=== PATIENT | male | born 1950 | race Caucasian/White ===

== ENCOUNTER 2024-07-21 13:47 | Emergency (ER) | payer MEDICARE, SELFPAY ==
[2024-07-21] VITALS (39 sets, daily range): BP systolic 115–169; BP diastolic 61–94; PULSE 59–79; RESP 16; TEMP 36.9; O2SAT 89–100; BMI 34.9
--- NOTE | 2024-07-21 14:14 | CRLHL7_ITS ---
For Patients: As a result of the Century Cures Act, medical imaging exams and procedure reports are released immediately into your electronic medical record. You may view this report before your referring provider. If you have questions, please contact your health care provider. Indication: Trauma, fall Technique: Volumetric multidetector CT images of the chest were obtained after the administration of IV contrast. 75 cc Isovue 370 low osmolar intravenous contrast Comparison: None available. Findings: The thoracic inlet and thyroid gland are unremarkable. The thoracic aorta is nonaneurysmal. There is no central filling defect to suggest pulmonary embolism. There is no mediastinal, hilar or axillary adenopathy. There is mild central bronchial thickening. There is minimal basilar atelectasis with mild likely chronic interstitial changes. No dense consolidation, effusion or pneumothorax. There is no evidence of pulmonary mass or suspicious pulmonary nodule. The partially visualized upper abdomen demonstrates moderate hepatomegaly and hepatic steatosis. There is a small fat containing hiatal hernia. There is demonstration of moderate sclerotic changes of the T7 vertebral body with extensive flowing anterior osteophytosis there is minimal extension of sclerotic changes to lateral syndesmophytes and the anterior osteophytes. There is demonstration of transverse lucency through the posterior body of the T11 level with mild paraspinous hematoma. Impression: 1. Mild basilar atelectasis. No other acute cardiopulmonary abnormality. 2. Demonstration of likely subacute to chronic fracture of the T7 vertebral body with a new acute fracture of the posterior T11 vertebral body with mild paraspinous hematoma. There is minimal extension of fracture through anterior osteophyte. Please note that all CT scans at this facility use dose modulation, iterative reconstruction, and/or weight-based dosing when appropriate to reduce radiation dose to as low as reasonably achievable. Dictated by Guille Portillo MD @ 07/21/2024 3:53:30 PM (Electronically Signed)
--- NOTE | 2024-07-21 14:14 | CRLHL7_ITS ---
For Patients: As a result of the Century Cures Act, medical imaging exams and procedure reports are released immediately into your electronic medical record. You may view this report before your referring provider. If you have questions, please contact your health care provider. Indication: Trauma, fall Technique: Volumetric multidetector CT images of the thoracic spine were obtained without the administration of IV contrast. Comparison: None available. Findings: There are sclerotic changes of the T7 vertebral body commensurate with likely healing of a chronic fracture. The remaining vertebral body heights are otherwise grossly preserved. There is trace traumatic anterolisthesis of T11 on T12. Otherwise there is mild straightening of the normal thoracic kyphosis. There is extensive diffuse flowing anterior osteophytosis and syndesmophyte ptosis commensurate with DISH. There is [id number] degenerative disc height loss and marginal osteophyte formation. There is no significant spinal canal stenosis or neural foraminal narrowing. Demonstration of fracture of the posterior T11 vertebral body with extension into the posterior elements including the base of the pedicles and spinous process. There is additional fracture disruption of bridging osteophyte at the T11-12 level with minimal extension through the superior T12 endplate. There is minimal paraspinous hematoma at the T11 and T12 levels. Impression: 1. Fracture of the posterior body of the T11 level with extension into the pedicles and spinous process commensurate with a 3 column, unstable injury with likely mild posttraumatic anterolisthesis of T11 on T12. 2. Additional fracture extending through a bridging osteophyte at the T11-12 level is appreciated with extension into the superior T12 endplate. No evidence of additional extended fractures into the posterior elements. 3. Demonstration of a healing subacute or chronic fracture of the T7 level. Findings were discussed with Cecile ram at 4:02 p.m. July 21, 2024 Please note that all CT scans at this facility use dose modulation, iterative reconstruction, and/or weight-based dosing when appropriate to reduce radiation dose to as low as reasonably achievable. Dictated by Guille Portillo MD @ 07/21/2024 4:07:56 PM (Electronically Signed)
--- NOTE | 2024-07-21 14:14 | CRLHL7_ITS ---
For Patients: As a result of the Century Cures Act, medical imaging exams and procedure reports are released immediately into your electronic medical record. You may view this report before your referring provider. If you have questions, please contact your health care provider. Indication: Trauma, fall Technique: Volumetric multidetector CT images of the lumbar spine were obtained without the administration of IV contrast. Comparison: None available. Findings: The lumbar vertebral body heights are grossly maintained with minimal endplate Schmorl`s defects. There is mild anterolisthesis of L4 on L5. No other significant alignment abnormalities are appreciated. There is mild disc height loss and marginal osteophyte formation worst at the L4-L5 and L5-S1 level. There is moderate to severe facet arthrosis. Degenerative changes of the sacroiliac joints are appreciated. Minimally displaced fracture of the left L1, L2 and L3 transverse processes. The paraspinous soft tissues are grossly within normal limits. Impression: Minimally displaced fractures of the left L1 through L3 transverse processes. Otherwise moderate degenerative changes of the lumbar spine without additional acute traumatic abnormality. Please note that all CT scans at this facility use dose modulation, iterative reconstruction, and/or weight-based dosing when appropriate to reduce radiation dose to as low as reasonably achievable. Dictated by Guille Portillo MD @ 07/21/2024 3:56:35 PM (Electronically Signed)
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
[2024-07-21 14:38] LABS: Creatinine, Point-of-Care* 1.4 mg/dl (0.6-1.3)
--- OUTSIDE RECORDS SUMMARY | 2024-07-21 14:38 | XMS_ITS | Clinical Summary ---
Author Organization [employer] [facility] Address [place], [place] [address] Care Team Providers Care Copyright Expert Name Role Phone Merrill Ewing MD Primary Care Provider Allergies Active Allergy Reactions Criticality Noted Date Comments Chlorthalidone Other - Describe In Comment Field 03/16/2023 Low sodium at [facility] 2022 Lisinopril Cough 03/31/2007 Medications Medication Sig Dispensed Refills Start Date End Date Status aspirin (ECOTRIN) 81 mg enteric coated tablet Take 1 tablet by mouth once daily with a meal. 0 11/02/2014 Active triamcinolone (ARISTOCORT; KENALOG) 0.1 % cream 03/18/2023 Active triamterene-hydrochlo rothiazide, 37.5-25 mg, (DYAZIDE) 37.5-25 mg capsuleIndications:Be nign essential HTN Take 1 Capsule by mouth every morning. 90 Capsule 3 01/28/2024 Active clotrimazole-betameth asone cream (LOTRISONE) 1-0.05 % creamIndications:Rash Apply topically to affected area(s) two times daily. 15 g 01/28/2024 Active atorvastatin (LIPITOR) 40 mg tabletIndications:Hyp erlipidemia, unspecified hyperlipidemia type Take 1 Tablet (40 mg) by mouth at bedtime. 90 Tablet 3 02/25/2024 Active losartan (COZAAR) 100 mg tabletIndications:Ess ential hypertension Take 1 Tablet (100 mg) by mouth once daily. 90 Tablet 3 02/25/2024 Active metoprolol tartrate (LOPRESSOR) 50 mg tabletIndications:Ess ential hypertension Take 1 Tablet (50 mg) by mouth two times daily. 180 Tablet 3 02/25/2024 Active Active Problems Problem Noted Date Diagnosed Date Bilateral lower extremity edema 01/28/2024 Prediabetes 01/06/2022 Umbilical hernia without obstruction and without gangrene 01/06/2022 Obesity, Class II, BMI 35-39.9 12/10/2020 Unspecified essential hypertension 03/31/2007 Other and unspecified hyperlipidemia 03/31/2007 Resolved Problems Problem Noted Date Diagnosed Date Resolved Date Left carotid bruit 01/06/2022 Routine adult health maintenance 11/01/2013 12/10/2020 Overview (11/01/2013): Colonoscopy 10/2013 diverticulosis repeat in 10 years Encounters Date Type Department Care Team Description 04/27/2024 Telephone [facility] [address] [place] [address] Merrill Ewing MD Foot Problem from Last 3 Months Immunizations Name Administration Dates Next Due COVID-19 VACCINE SPIKEVAX (M ODERNA 50MCG/0.5ML) 12YO+ PFS 01/28/2024 COVID-19 vaccine (Pfizer-Bio NTech 30mcg/0.3mL) 12YO+ BIVALENT PF, MDV 01/08/2023 COVID-19 vaccine (Pfizer-Bio NTech 30mcg/0.3mL) 12YO+ DOUG-SUCROSE PF, MDV 01/06/2022 Pneumococcal Conj 20-valent (Prevnar 20) 023 Pneumococcal Poly,23-Valent (Pneumovax) 11/15/19 16 Pneumococcal conj 13-Valent (Prevnar 13) 015 Td (Age >=7 Years) 10/19/2002 Tdap 09/26/2013 Family History Medical History Relation Name Comments Other Father dementia/jason son's disease Diabetes Mother Heart Disease Mother Relation Name Status Comments Father Mother Social History Tobacco Use Types Packs/Day Years Used Date Smoking Tobacco: Never Smokeless Tobacco: Never Tobacco Cessation:Counseling Given: No Alcohol Use Standard Drinks/Week Comments Yes 21 (1 standard drink = 0.6 oz pu re alcohol) 3 to 4 beers a day PHQ-2 Answer Date Recorded PHQ-2 TOTAL SCORE 0 01/28/2024 Social Connections Answer Date Recorded Frequency of Communication with Friends and Fami ly Not on file 04/18/2024 Financial Resource Strain Answer Date R ecorded Difficulty of Paying Living Expenses 3 04/15/2023 Difficulty of Paying Living Expenses Not on file 04/15/2023 Food Insecurity Answer Date Recorded Worried About Running Out of Food in the Last Ye ar 1 04/15/2023 Transportation Needs Answer Date Record ed Lack of Transportation (Medical) 1 04/15/2023 Housing Stability Answer Date Recorded Unable to Pay for Housing in the Last Year 1 04/15/2023 Sex and Gender Information Value Date Recorded Sex Assigned at Not on file Gender Identity Not on file Sexual Orientation Not on file Obstetrics History Last Filed Vital Signs Vital Sign Reading Time Taken Comments Blood Pressure 123/75 02/25/2024 8:57 AM CDT Pulse 62 02/25/2024 8:57 AM CDT Temperature 36.4 ??C (97.5 ??F) 11/23/2019 7:42 AM CS T Respiratory Rate - - Oxygen Saturation 97% 02/25/2024 8:57 AM CDT Inhaled Oxygen Concentration - - Weight 108.7 kg (239 lb 9.6 oz) 02/25/2024 8:57 AM CDT Height 171.9 cm (5' 7.68) 01/28/2024 7:38 AM CD T Body Mass Index 36.78 01/28/2024 7:38 AM CDT Plan of Treatment Health Maintenance Due Date Last Done Comments Zoster (shingles) series for age 50+ (1 of 2) 1999 Tetanus booster 09/26/2023 09/26/2013, 06/2013, 10/19/2002 RSV vaccine for adults or (1 - 1-dose 75+ series) 2024 COVID-19 vaccine series (2023- season) 2024 01/28/2024, 01/08/2023, 01/06/2022, Additional history exists Influenza for age 65+ 06/19/2024 BMI (ht and wt on same day) for age 18+ 01/27/2025 01/28/2024, 01/08/2023, 01/06/2022, Additional history exists Depression screening for age 12+ 01/27/2025 01/28/2024, 01/08/2023, 01/06/2022, Additional history exists Medicare Wellness for age 65+ 01/28/2025, 01/08/2023, 01/06/2022, Additional history exists Fecal testing non-DNA (FIT,FOBT,iFOBT) for age 45-75 02/08/2025 02/09/2024 Lipids for age 45-75 01/27/2029 01/28/2024, 01/08/2023, 01/06/2022, Additional history exists Tdap Completed 09/26/2013 Hepatitis C screening for ag e 18-79 Completed 12/10/2020 Pneumococcal series for age 65+ Completed 01/08/2023, 11/15/2015, 11/02/2014 Procedures Procedure Name Priority Date/Time Associated Diagnosis Comments OCCULT BLOOD IFOBT STOOL Routine 02/09/2024 10:19 AM CDT Screening for colon cancer LIPID PANEL W REFLEX MEASURED LDL Routine 01/28/2024 8:22 AM CDT Hyperlipidemia, unspecified hyperlipidemia type ANTI HCV Routine 12/10/2020 2:37 PM TEAM SUPERVISOR Need for hepatitis C screening test from Last 3 Months or Most Recently Relevant to Health Maintenance Results * OCCULT BLOOD IFOBT STOOL (02/09/2024 10:19 AM CDT) STOOL BLOOD ,IFOBT Negative Negative 02/22/2024 12:21 PM CDT [facility] Stool STOOL SPECIMEN / Unknown Non-Blood / Unknown 02/09/2024 10:19 AM CDT 02/22/2024 10:19 AM CDT Merrill Ewing MD LABORATORY [facility] [address] [place] [address], * (ABNORMAL) LIPID PANEL W REFLEX MEASURED LDL (01/28/2024 8:22 AM CDT) CHOLESTEROL,TOTAL 150 100 - 199 mg/dL 01/28/2024 5:24 PM CDT [facility] Comment: Cholesterol, Total Reference Ranges Desirable <200 mg/dL Borderline 200-239 mg/dL High >=240 mg/dL TRIGLYCERIDES 242(H) <150 mg/dL 01/28/2024 5:24 PM CDT [facility] HDL CHOLESTEROL 60 >40 mg/dL 5:24 PM CDT [facility] NON-HDL CHOLESTEROL 90 <145 mg/dl 01/28/2024 5:24 PM CDT [facility] CHOL/HDL RATIO 2.50 <4.50 01/28/2024 5:24 PM CDT [facility] LDL CHOLESTEROL 42 <=130 mg/dL 01/28/2024 5:24 PM CDT [facility] VLDL CHOLESTEROL 48(H) <=30 mg/dL 01/28/2024 5:24 PM CDT [facility] PROVIDER ORDERED STATUS RANDOM 01/28/2024 5:24 PM CDT [facility] Blood BLOOD SPECIMEN / Unknown Venipuncture / Unknown 01/28/2024 8:22 AM CDT 01/28/2024 8:26 AM CDT Merrill Ewing MD CHEMISTRY Performing Organization Address City/[facility]/ZIP Co de Phone Number [facility] [address] [place] [address], * ANTI HCV (12/10/2020 2:37 PM TEAM SUPERVISOR) HEPATITIS C ANTIBODY Non-React alan Non-React alan 12/10/2020 9:48 PM TEAM SUPERVISOR [facility] Comment:Antibodies to HCV no t detected; does not exclude the possibility of exposure to HCV. Blood BLOOD SPECIMEN / Unknown Venipuncture / Unknown 12/10/2020 2:37 PM TEAM SUPERVISOR 12/10/2020 2:37 PM TEAM SUPERVISOR Merrill Ewing MD [facility] [address] [place] [address], from Last 3 Months or Most Recently Relevant to Health Maintenance Care Teams Copyright Expert Relationship Specialty Start Date End Date Merrill Ewing MD [address] [place] [address] PCP - General Family Practice 12/04/20
[2024-07-21 14:39] LABS: Basophils Percent Auto 0.3 % (0.0-3.0); Eosinophils Percent Auto 0.1 % (0.0-7.0); Hematocrit 37.1 % (37.0-53.0); Hemoglobin* 12.6 gm/dL (13.5-17.5); Immature Granulocytes Pct Auto 1.3 %; Lymphocytes Percent Auto 8.7 % (20-44); Mean Corpuscular HGB Conc 34 gm/dL (32-36); Mean Corpuscular Hemoglobin 31 pg (26-34); Mean Corpuscular Volume 92 fL (80-100); Monocytes Percent Auto 4.7 % (0.0-11.0); Neutrophils Percent Auto 84.9 % (42.0-72.0); Platelet Count* 201 K/uL (140-440); RDW Coefficient of Variation % 12.4 % (11.5-15.5); Red Blood Count 4.02 m/uL (4.30-5.90); White Blood Count* 11.51 K/uL (4.50-11.00)
[2024-07-21 14:41] LABS: Slide Review Reflex No
[2024-07-21 14:51] LABS: Appearance Urine Clear (Clear); Bilirubin Urine Negative (Negative); Blood Urine Negative (Negative); Color Urine Yellow (Yellow); Glucose Urine Negative (Negative); Ketones Urine 1+ (Negative); Leukocyte Esterase Urine Negative (Negative); Nitrite Urine Negative (Negative); Protein Urine 1+ (Negative); Specific Gravity Urine 1.015 (1.000-1.030); Urobilinogen Urine 0.2 (0.2-1.0); pH Urine 6.5 (5.0-8.5)
[2024-07-21 14:54] LABS: Chloride* 105 mmol/L (96-114); Potassium* 4.4 mmol/L (3.6-5.1); Sodium* 138 mmol/L (135-149)
[2024-07-21 14:57] LABS: Anion Gap 9 mEq/L (7-15); Blood Urea Nitrogen* 29 mg/dL (7-30); Calcium* 9.5 mg/dL (8.4-10.6); Carbon Dioxide* 24 mmol/L (20-32); Creatinine* 1.2 mg/dL (0.5-1.5); Est. Creatinine Clearance* 53.19; Estimated Glomerular Filt Rate 63 ml/min; Glucose* 149 mg/dL (60-115)
[2024-07-21 14:59] LABS: RBC Urine 0-2 (0-2); Squamous Epithelial Cell Urine Many (None-Few); WBC Urine 0-2 (0-5)
--- NOTE | 2024-07-21 16:33 | CRLHL7_ITS ---
For Patients: As a result of the Century Cures Act, medical imaging exams and procedure reports are released immediately into your electronic medical record. You may view this report before your referring provider. If you have questions, please contact your health care provider. INDICATION: Fall. COMPARISON: None. TECHNIQUE: Noncontrast CT cervical spine. FINDINGS: Straightening of the normal cervical lordosis which may be secondary to most spasm or patient positioning. Otherwise, normal vertebral body facet alignment. No acute fractures. No vertebral body loss of height. No spondylolisthesis. No prevertebral soft tissue swelling. Cervical spondylosis with multilevel disc degeneration. Multilevel uncovertebral facet degeneration. C1-2: No spinal canal narrowing. C2-3: No spinal canal or neural foraminal narrowing. C3-4: Disk degeneration posterior disc bulge. No narrowing of the spinal canal. Mild narrowing of the left neural foramen. No narrowing of the right neural foramen. C4-5: Disc generation broad-based disc osteophyte complex. Mild narrowing of the spinal canal. Mild narrowing of bilateral foramina. C5-6: Disc degeneration loss disc height. Broad-based disc osteophyte complex. Mild narrowing of spinal canal. Moderate right and mild left neural foraminal narrowing. C6-7: Disc degeneration broad-based disc osteophyte complex. Mild narrowing of the spinal canal. Moderate narrowing of the right neural foramen. No narrowing of the left neural foramen. C7-T1: No spinal canal or neural foraminal narrowing. Left lung apex is clear. Normal soft tissues is visualized neck. IMPRESSION: 1. Straightening of the normal cervical lordosis. Otherwise, normal alignment. No fractures. 2. Cervical spondylosis. 3. No prevertebral soft tissue swelling. 4. At C3-4, mild narrowing of the left neural foramen 5. At C4-5, mild narrowing of the spinal canal and bilateral neural foramina 6. At C5-6, mild narrowing of the spinal canal. Moderate right and mild left neural foraminal narrowing. 7. At C6-7, mild narrowing of the spinal canal. Moderate narrowing of the right neural foramen Please note that all CT scans at this facility use dose modulation, iterative reconstruction, and/or weight-based dosing when appropriate to reduce radiation dose to as low as reasonably achievable. Dictated by Abebe Dias MD @ 07/21/2024 5:29:29 PM (Electronically Signed)
[2024-07-21] MEDS: MORPHINE 4 MG/ML INJ IVP (17:33)
== END 2024-07-21 20:53 | disposition short-term general hospital (02) ==
LOC: ED 14:35
PROVIDERS: Emergency Provider Emergency Medicine; PCP Family Medicine; Visit Provider Emergency Medicine
DX: S22.089A Unspecified fracture of T11-T12 vertebra, initial encounter for closed fracture (principal); S32.019A Unspecified fracture of first lumbar vertebra, initial encounter for closed fracture; W01.10XA Fall on same level from slipping, tripping and stumbling with subsequent striking against unspecified object, initial encounter
CPT/HCPCS: 36415; 71260; 72125; 72128; 72131; 80048; 81001; 82565; 85025; 96374; 99284; 99285; J2270; Q9967

== ENCOUNTER 2024-07-21 20:42 | Outpatient (CLI) | payer MEDICARE, SELFPAY ==
--- OUTSIDE RECORDS SUMMARY | 2024-07-25 21:49 | XMS_ITS | Continuity of Care Document ---
Author Organization [facility] Address [address] [place] [address] Phone Care Team Providers Care Turning Sander Operator Name Role Phone Hodan ASKEW, PhD, Petros Unavailable Unavai lable Advance Directives Directive Yes / No Effective Date File Name No Information Encounters Encounter Description Practice Location Reason(s) For Visit Diagnoses Date Provider Providers Copied on Encounter [facility], [address], [place], [place], [id number], [place] tel:[phone] [facility] No Information Hodan Morrell. [facility], [address] [facility] [address], [place], [address], [place]. tel:[phone] Family History Family Member Type Diagnosis Age At Onset No Information Payers Payer name Insurance type Covered democrat ID Authoriza tion(s) No Information Social History Type Description Quantity Date Captured Comments Sex Male Smoking Status No Information Chief Complaint And Reason For Visit No Information Reason For Referral Reason For Referral No Information Plan Of Treatment Date Type Action Status Appointment Ge Herrera BOOKED History Of Present Illness Encounter Date Complaint History Of Prese nt Illness No Information Functional Status Date Functional Assessmen t No Information Instructions Date Instruction Additional Infor mation No Information Assessments Type Assessment Date No Information Patient Care Teams Name Effective Dates (start - stop) Status Members No Information
--- OUTSIDE RECORDS SUMMARY | 2024-07-25 21:49 | XMS_ITS | Clinical Summary ---
Author Organization [employer] [facility] Address [place], [place] [address] Care Team Providers Care [place] Expert Name Role Phone Merrill Ewing MD Primary Care Provider [facility] Unavailable [phone] Allergies Active Allergy Reactions Criticality Noted Date Comments Chlorthalidone Other - Describe In Comment Field 03/16/2023 Low sodium at [facility] 2022 Lisinopril Cough 03/31/2007 Medications Medication Sig Dispensed Refills Start Date End Date Status aspirin (ECOTRIN) 81 mg enteric coated tablet Take 1 tablet by mouth once daily with a meal. 0 5 Active atorvastatin (LIPITOR) 40 mg tabletIndications: Hyperlipidemia, unspecified hyperlipidemia type Take 1 Tablet (40 mg) by mouth at bedtime. 90 Tablet 3 4 Active losartan (COZAAR) 100 mg tabletIndications: Essential hypertension Take 1 Tablet (100 mg) by mouth once daily. 90 Tablet 3 4 Active metoprolol tartrate (LOPRESSOR) 50 mg tabletIndications: Essential hypertension Take 1 Tablet (50 mg) by mouth two times daily. 180 Tablet 3 4 Active sennosides (SENNA) 8.6 mg tabletIndications: Constipation, unspecified constipation type Take 2 Tablets (17.2 mg) by mouth 2 times daily if needed for Constipation. 10 Tablet 4 Active oxyCODONE (ROXICODONE) 5 mg immediate release tabletIndications: Closed unstable burst fracture of eleventh thoracic vertebra with routine healing Take 1 Tablet (5 mg) by mouth every 8 hours if needed for Pain (First choice for severe pain.). 12 Tablet 4 Active triamcinolone (ARISTOCORT; KENALOG) 0.1 % cream 3 07/21/20 24 Discontinued(Pha rmacist change per medication history (E-cancel not sent)) triamterene-hydroc hlorothiazide, 37.5-25 mg, (DYAZIDE) 37.5-25 mg capsuleIndications :Benign essential HTN Take 1 Capsule by mouth every morning. 90 Capsule 3 4 07/24/20 24 Discontinued(*IP Discontinued) clotrimazole-betam ethasone cream (LOTRISONE) 1-0.05 % creamIndications:R juana Apply topically to affected area(s) two times daily. 15 g 4 07/21/20 24 Discontinued(Pha rmacist change per medication history (E-cancel not sent)) oxyCODONE (ROXICODONE) 5 mg immediate release tabletIndications: Closed unstable burst fracture of eleventh thoracic vertebra with routine healing Take 1 Tablet (5 mg) by mouth every 8 hours if needed for Pain (First choice for severe pain.). 10 Tablet 4 07/24/20 24 Discontinued Active Problems Problem Noted Date Diagnosed Date Closed unstable burst fractu re of eleventh thoracic vertebra with routine healing 07/21/2024 Primary hypertension 07/21/2024 Bilateral lower extremity edema 01/28/2024 Prediabetes 01/06/2022 Umbilical hernia without obstruction and without gangrene 01/06/2022 Obesity, Class II, BMI 35-39.9 12/10/2020 Unspecified essential hypertension 03/31/2007 Other and unspecified hyperlipidemia 03/31/2007 Resolved Problems Problem Noted Date Diagnosed Date Resolved Date Left carotid bruit 01/06/2022 4 Routine adult health maintenance 11/01/2013 12/10/2020 Overview (11/01/2013): Colonoscopy 10/2013 diverticulosis repeat in 10 years Encounters Date Type Department Care Team Description 07/25/2024 Patient Outreach [facility] [address] [place] [address] Steph Mendieta RN Primary RN Care Management; Hospital F/U (LACE 25) 07/22/2024 2:02 PM CDT Anesthesia Event [facility] [address] [place] [address] Carmella Green MD Robinson, Justin C, CRNA 07/22/2024 1:54 PM CDT - 07/22/2024 7:38 PM CDT Surgery [facility] [address] [place] [address] Petros Pettit MD POSTERIOR INSTRUMENTATION T9-L2, open treatment of T11-T12 fracture 07/21/2024 9:41 PM CDT - 07/24/2024 2:45 PM CDT Hospital Encounter [facility] [address] [place] [address] [facility] [place] Sriram Hwang MD Qamar, Johnathan, KAYLIN Constipation, unspecified constipation type (Primary Dx); Closed unstable burst fracture of eleventh thoracic vertebra with routine healing Discharge Disposition: Home Health 07/21/2024 Orders Only [facility] Scanner 1 scan: (1-Ord) [place], LUMBAR SPINE WO CONTRAST, 07/21/2024 07/21/2024 Travel 04/27/2024 Telephone [facility] [address] [place] [address] Merrill Ewing MD Foot Problem [...] of Communication with Friends and Fami ly 0 07/21/2024 Financial Resource Strain Answer Date R ecorded Difficulty of Paying Living Expenses 3 07/21/2024 Difficulty of Paying Living Expenses Not on file 07/21/2024 Food Insecurity Answer Date Recorded Worried About Running Out of Food in the Last Ye ar 1 07/21/2024 Transportation Needs Answer Date Record ed Lack of Transportation (Medical) 1 07/21/2024 Housing Stability Answer Date Recorded Unable to Pay for Housing in the Last Year 1 07/21/2024 Sex and Gender Information Value Date Recorded Sex Assigned at Not on file Gender Identity Not on file Sexual Orientation Not on file Obstetrics History Last Filed Vital Signs Vital Sign Reading Time Taken Comments Blood Pressure 112/58 07/24/2024 7:00 AM CDT Pulse 57 07/24/2024 7:00 AM CDT Temperature 37.1 ??C (98.8 ??F) 07/24/2024 7:00 AM CD T Respiratory Rate 16 07/24/2024 7:00 AM CDT Oxygen Saturation 98% 07/24/2024 7:00 AM CDT Inhaled Oxygen Concentration - - Weight 105.6 kg (232 lb 14.4 oz) 07/24/2024 6:00 AM CDT Height 171.9 cm (5' 7.68) 01/28/2024 7:38 AM CD T Body Mass Index 35.75 01/28/2024 7:38 AM CDT Plan of Treatment Upcoming Encounters Date Type Department Care Team (Late st Contact Info) Description 07/26/2024 9:30 AM CDT Appointment [facility] [employer] [facility] [address] [place], [place] [phone] Jeana Gayle, PT [address] [place], [place] [phone] 07/27/2024 8:20 AM CDT Office Visit [facility] [address] [place] [address] Franki Carty MD [address] [place] [address] Health Maintenance Due Date Last Done Comments Zoster (shingles) series for age 50+ (1 of 2) 1999 Tetanus booster 09/26/2023 09/26/2013, 06/2013, 10/19/2002 RSV vaccine for adults or (1 - 1-dose 75+ series) 2024 COVID-19 vaccine series ( season) 2024 01/28/2024, 01/08/2023, 01/06/2022, Additional history [...] for age 65+ Completed 01/08/2023, 11/15/2015, 11/02/2014 Medical Devices Implanted Type Area Systems Analyst Engineer Device Identifier Shelf Expiration Date Model / Serial / Lot Screw Lmbr 4.5x40 Voyager [facility] - [id number] Implanted:Qty: 3 on 07/22/2024 by Petros Pettit MD at [facility] N/A: Spine Med[employer]onic Spine/Ortho [id number] / / Screw Spinal 4.5x45mm Voyager Mas - [id number] Implanted:Qty: 4 on 07/22/2024 by Petros Pettit MD at [facility] N/A: Spine [employer] Spine/Ortho [id number] / / Screw Spinal 5.5x40mm Voyager Mas - [id number] Implanted:Qty: 5 on 07/22/2024 by Petros Pettit MD at [facility] N/A: Spine [employer] Spine/Ortho [id number] / / Screw Spinal 5.5x45mm Voyager Mas - [id number] Implanted:Qty: 2 on 07/22/2024 by Petros Pettit MD at [facility] N/A: Spine [employer] Spine/Ortho [id number] / / Set Screw 5.5/6.0 Solera Voyager - [id number] Implanted:Qty: 14 on 07/22/2024 by Petros Pettit MD at [facility] N/A: Spine Medtronic Spine/Ortho [id number] / / Reagan Lmbr 230x5.5mm Longitude Ii Perc Co Cr Implanted:Qty: 1 on 07/22/2024 by Petros Pettit MD at [facility] N/A: Spine [id number] / / Description:Reagan Lmbr 230x5.5 mm Longitude II Perc Co Cr Reagan Lmbr 200x5.5mm Longitude Ii Perc Co Cr Implanted:Qty: 1 on 07/22/2024 by Petros Pettit MD at [facility] N/A: Spine [id number] / / Description:Reagan Lmbr 200x5.5 mm Longitude II Perc Co Cr Procedures Procedure Name Priority Date/Time Associated Diagnosis Comments BASIC METABOLIC PANEL Early AM 07/24/2024 10:56 AM CDT HEMOGLOBIN Early AM 07/24/2024 10:56 AM CDT XR SPINE ENTIRE 2 TO 3 VIEWS Routine 07/24/2024 9:14 AM CDT HEMOGLOBIN Early AM 07/23/2024 7:23 AM CDT GLUCOSE METER Timed 07/22/2024 7:05 PM CDT XR SPINE THORACIC 2 VIEWS PORTABLE Routine 07/22/2024 5:25 PM CDT XR O-ARM FLUORO 31-120 MINUTES Routine 07/22/2024 4:30 PM CDT XR SPINE THORACIC 2 VIEWS PORTABLE Routine 07/22/2024 4:30 PM CDT ARTERIAL LINE Routine 07/22/2024 3:14 PM CDT ARTERIAL LINE Routine 07/22/2024 3:14 PM CDT ARTERIAL LINE Routine 07/22/2024 3:14 PM CDT ARTERIAL LINE Routine 07/22/2024 3:14 PM CDT XR C-ARM EQUAL OR LESS 1 HR Routine 07/22/2024 3:00 PM CDT ENDOTRACHEAL TUBE Routine 07/22/2024 2:2 7 PM CDT ENDOTRACHEAL TUBE Routine 07/22/2024 2:2 7 PM CDT ENDOTRACHEAL TUBE Routine 07/22/2024 2:2 7 PM CDT FUSION POSTERIOR SPINE LEVEL 05 Class E Urgent 07/22/2024 1:30 PM CDT unstable t-11 fracture Case Notes Lenore MooreIOMO-Arm, C-ArmZackeryckson Combo vs Benjamin frame5.5 VoyagerMR GLUCOSE METER Timed 07/22/2024 12:07 PM CDT APTT Preop 07/22/2024 11:46 AM CDT MR SPINE LUMBAR WO STAT 07/22/2024 11:06 AM CDT MR SPINE THORACIC WO STAT 07/22/2024 11:05 AM CDT TYPE & SCREEN Early AM 07/22/2024 6:26 AM CDT PROTIME-INR Early AM 07/22/2024 6:26 AM CDT CBC W PLT NO DIFF Early AM 07/22/2024 6:2 6 AM CDT SODIUM Early AM 07/22/2024 6:26 AM CDT POTASSIUM Early AM 07/22/2024 6:26 AM CDT CREATININE Early AM 07/22/2024 6:26 AM CDT SCAN-CT INTERPRETATION 07/21/2024 12:00 AM CDT OCCULT BLOOD IFOBT STOOL Routine 02/09/2024 10:19 AM CDT Screening for colon cancer LIPID PANEL W REFLEX MEASURED LDL Routine 01/28/2024 8:22 AM CDT Hyperlipidemia, unspecified hyperlipidemia type ANTI HCV Routine 12/10/2020 2:37 PM DIRECT CARE SPECIALIST Need for hepatitis C screening test from Last 3 Months or Most Recently Relevant to Health Maintenance Results * (ABNORMAL) Hemoglobin - In AM (07/24/2024 10:56 AM CDT) Only the most recent of2 resultswithin the time period is included. HEMOGLOBIN 11.1(L) 13.5 - 17.5 g/dL 07/24/2024 11:08 AM CDT [facility] MCV 93 80 - 100 fL 07/24/2024 11:08 AM CDT [facility] Blood BLOOD SPECIMEN / Unknown Butterfly / Unknown 07/24/2024 10:56 AM CDT 07/24/2024 11:04 AM CDT [facility] - 07/24/2024 11:08 AM CDT Call surgeon if Hemoglobin is less than 9. Jason CASIANO HEMATOLOGY [facility] [address] [place] [address], * (ABNORMAL) BASIC METABOLIC PANEL (07/24/2024 10:56 AM CDT) SODIUM 134(L) 136 - 145 mmol/L 07/24/2024 11:41 AM T [facility] POTASSIUM 4.5 3.5 - 5.1 mmol/L 07/24/2024 11:41 AM T [facility] CHLORIDE 98 98 - 107 mmol/L 07/24/2024 11:41 AM T [facility] CO2,TOTAL 26 22 - 29 mmol/L 07/24/2024 11:41 AM [facility] ANION GAP 10 5 - 18 07/24/2024 11:41 AM T [facility] GLUCOSE 139(H) 70 - 99 mg/dL 07/24/2024 11:41 AM T [facility] CALCIUM 8.8 8.8 - 10.2 mg/dL 07/24/2024 11:41 AM T [facility] BUN 25(H) 8 - 23 mg/dL 07/24/2024 11:41 AM [facility] CREATININE 1.17 0.70 - 1.20 mg/dL 07/24/2024 11:41 AM [facility] BUN/CREAT RATIO 21(H) 10 - 20 11:41 AM T [facility] eGFR 65(L) >90 mL/min/1.7 3m2 07/24/2024 11:41 AM T [facility] Comment:As of 2021, eG FR is calculated by the CKD-EPI creatinine equation without race adjustment. ??eGFR can be influenced by muscle mass, exercise, and diet. ??The reported eGFR is an estimation only and is only applicable if the renal function is stable. Blood BLOOD SPECIMEN / Unknown Butterfly / Unknown 07/24/2024 10:56 AM CDT 07/24/2024 11:04 AM CDT Johnathan Guadarrama KAYLIN CHEMISTRY Performing Organization Address City/[facility]/ZIP Co de Phone Number [facility] [address] [address], [place] * XR SPINE ENTIRE 2 VIEWS (07/24/2024 9:14 AM CDT) Anatomical Region Laterality Modality CERVICAL SPINE, THORACIC SPINE, LUMBAR SPINE, Sp ine Digital Radiography Narrative 07/24/2024 10:08 AM CDT Indication: Postop evaluation. Findings: 8 views of the spine show posterior stabilization hardware extending from T9 down to L2. ??The hardware appears intact. The T11-12 fracture is not well-visualized. Multilevel marginal osteophyte formation. ??Vascular calcifications. ??No other bony or soft tissue abnormalities identified. Jason CASIANO [facility] * (ABNORMAL) GLUCOSE METER (07/22/2024 7:05 PM CDT) Only the most recent of2 resultswithin the time period is included. [facility] GLUCOSE METER 153(H) 65 - 100 mg/dL 07/22/2024 7:11 PM CDT [facility] Blood BLOOD SPECIMEN / Unknown 07/22/2024 7:05 PM CDT 07/22/2024 7:11 PM CDT [facility] CHE[facility]STRY Performing Organization Address City/[facility]/ZIP Co de Phone Number [facility] [address] [address], [place] * XR SPINE THORACIC 2 VIEWS PORTABLE (07/22/2024 5:25 PM CDT) Only the most recent of2 resultswithin the time period is included. Anatomical Region Laterality Modality Spine, THORACIC SPINE Digital Ra diography 07/23/2024 7:33 AM CDT Narrative 07/23/2024 7:33 AM CDT For Patients: ??As a result of the Cures Act, medical imaging exams and procedure reports are released immediately into your electronic medical record. ??You may view this report before your referring provider. ??If you have questions, please contact your health care provider. INDICATION: T8-L2 posterior fusion spine localization TECHNIQUE: Two images of the thoracolumbar spine FINDINGS/IMPRESSION: Posterior spinal fusion from T8-L2 with normal alignment. No hardware complication seen. Dictated by Betty Romero MD @ Jul ??2023 ??7:33AM (Electronically Signed) [email or web address] Procedure Note Betty Romero MD - 07/23/2024 For Patients: As a result of the s Act, medical imagingexams and procedure reports are released immediately into your electronicmedical record. You may view this report before your referring provider.If you have questions, please contact your health care provider. INDICATION: T8-L2 posterior fusion spine localization TECHNIQUE: Two images of the thoracolumbar spine FINDINGS/IMPRESSION: Posterior spinal fusion from T8-L2 with normal alignment. No hardwarecomplication seen. Dictated by Betty Romero MD @ Jul 23 2024 7:33AM (Electronically Signed) [email or web address] Petros Pettit MD GENERAL IMAGING * XR O-ARM FLUORO 31-120 MINUTES (07/22/2024 4:30 PM CDT) Anatomical Region Laterality Modality Digital Radiogra phy 07/23/2024 7:34 AM CDT Narrative 07/23/2024 7:34 AM CDT For Patients: ??As a result of the s Act, medical imaging exams and procedure reports are released immediately into your electronic medical record. ??You may view this report before your referring provider. ??If you have questions, please contact your health care provider. INDICATION: T8-L2 posterior fusion TECHNIQUE: C-arm fluoroscopy provided. No images provided. FINDINGS/IMPRESSION: C-arm fluoroscopy provided for purposes of spine fusion. Please refer to the performing physicians who propofol detail. 18 seconds fluoro time provided Dictated by Betty Romero MD @ Jul ??2023 ??7:34AM (Electronically Signed) [email or web address] Procedure Note Betty Romero MD - 07/23/2024 For Patients: As a result of the s Act, medical imagingexams and procedure reports are released immediately into your electronicmedical record. You may view this report before your referring provider.If you have questions, please contact your health care provider. INDICATION: T8-L2 posterior fusion TECHNIQUE: C-arm fluoroscopy provided. No images provided. FINDINGS/IMPRESSION: C-arm fluoroscopy provided for purposes of spine fusion. Please refer tothe performing physicians who propofol detail. 18 seconds fluoro timeprovided Dictated by Betty Romero MD @ Jul 23 2024 7:34AM (Electronically Signed) [email or web address] Petros Pettit MD FLUOROSCOPY * HCHG TUBING PR1, HCHG TUBING PR20, HCHG DRSG PR1, HCHG KIT PR5 (07/22/2024 3:14 PM CDT) Narrative Carmella Green MD - 07/22/2024 3:14 PM CDT Carmella Green MD ? 07/22/2024 ??3:15 PM Arterial Line Patient location during procedure: OR Indications: lab sampling and monitoring Staffing Preanesthetic Checklist Completed: patient identified, risks and benefits discussed, consent obtained and timeout performed Arterial Line Patient position: supine. ??Comment:. Laterality: left Site: radial Securement/dressing: dressing applied. ??Comment: Needle Catheter size: 20 G. ??Comment:. Events: no complications. Carmella Green MD ANESTHESIA PX NOTE O RDERABLES * XR C-ARM EQUAL OR LESS 1 HR (07/22/2024 3:00 PM CDT) Anatomical Region Laterality Modality Digital Radiogra phy 07/23/2024 7:35 AM CDT Narrative 07/23/2024 7:35 AM CDT For Patients: ??As a result of the s Act, medical imaging exams and procedure reports are released immediately into your electronic medical record. ??You may view this report before your referring provider. ??If you have questions, please contact your health care provider. INDICATION: T8-L2 posterior fusion TECHNIQUE: C-arm fluoroscopy provided. No images provided. FINDINGS/IMPRESSION: C-arm fluoroscopy provided for purposes of spine fusion. Please refer to the performing physicians who propofol detail. Six seconds fluoro time provided Dictated by Betty Romero MD @ Jul ??2023 ??7:35AM (Electronically Signed) [email or web address] Procedure Note Betty Romero MD - 07/23/2024 For Patients: As a result of the Cures Act, medical imagingexams and procedure reports are released immediately into your electronicmedical record. You may view this report before your referring provider.If you have questions, please contact your health care provider. INDICATION: T8-L2 posterior fusion TECHNIQUE: C-arm fluoroscopy provided. No images provided. FINDINGS/IMPRESSION: C-arm fluoroscopy provided for purposes of spine fusion. Please refer tothe performing physicians who propofol detail. Six seconds fluoro timeprovided Dictated by Betty Romero MD @ Jul 23 2024 7:35AM (Electronically Signed) [email or web address] Petros Pettit MD FLUOROSCOPY * HCHG TUBE PR1, HCHG INSTRUMENT DISP PR10, HCHG STYLET PR1 (07/22/2024 2:27 PM CDT) Narrative Arjun Fontanez CRNA - 07/22/2024 2:27 PM CDT Arjun Fontanez CRNA ? 07/22/2024 ??2:28 PM Procedure: ETT Patient location during procedure: OR ETT Properties Mask Ventilation: oral airway and difficult (Yanez) Final Technique: video laryngoscopy Type: straight Location: oral Cuffed: yes Tube Size: 7.5 mm Stylet: yes Laryngoscope Blade: Glidescope Blade Size: 4 Cormack-Lehane Grade View: 1 Insertion Attempts: 1 Placement Verification: auscultation, end tidal CO2, symmetrical chest wall movement and cuff palpation Assessment: pharynx clear, atraumatic and dentition unchanged Secured at: 24 Measured From: lips Difficulty: 0 (not difficult) Carmella Green MD ANESTHESIA PX NOTE O RDERABLES * aPTT (07/22/2024 11:46 AM CDT) APTT 30 25 - 36 sec 07/22/2024 12:36 PM CDT [facility] Blood BLOOD SPECIMEN / Unknown Venipuncture / Unknown 07/22/2024 11:46 AM CDT 07/22/2024 12:18 PM CDT Narrative [facility] - 07/22/2024 12:36 PM CDT Therapeutic Range: 59-89 seconds Vitaly Huitron MD HEMATOLOGY [facility] [address] [place] [address], * MR SPINE LUMBAR WO CONTRAST (07/22/2024 11:06 AM CDT) Anatomical Region Laterality Modality Spine, LUMBAR SPINE Magnetic Res onance 07/22/2024 11:2 7 AM CDT Narrative 07/22/2024 11:27 AM CDT For Patients: ??As a result of the Century Cures Act, medical imaging exams and procedure reports are released immediately into your electronic medical record. ??You may view this report before your referring provider. ??If you have questions, please contact your health care provider. Indication: Fracture. Technique: Multiplanar, multisequence MRI of the thoracic and lumbar spine was performed without intravenous contrast. Comparison: CT thoracic and lumbar spine 07/21/2024. Findings: Thoracic: There is an acute fracture involving the anterior endplate osteophyte of T11-12 extension of fracture through the right posterolateral vertebral body of T11 and extending to involve the T10-11 and T11-12 disc spaces. Additionally the fracture extends to involve the left posterosuperior endplate. There is disruption of the anterior and posterior longitudinal ligaments. Widening of the anterior T11-12 disc space of approximately 8 mm. The ligamentum flavum appears intact. Trace anterolisthesis T11 on T12. No abnormal intraspinal signal or significant retropulsion of vertebral elements. Mild chronic superior endplate compression deformity of T6. Healing subacute compression fracture at T7. Lumbar: There are 5 lumbar type vertebral segments identified. Acute fractures involving the right L1, L2 and L3 transverse processes. The conus medullaris terminates at L1, normal. Cauda equina appears unremarkable. T12-L1: No spinal canal or neural foraminal stenosis. L1-2: Small central annular fissure. No spinal canal or neural foraminal narrowing. L2-3: Disc bulge results in minimal spinal canal narrowing. Mild neural foraminal narrowing. Moderate facet arthropathy. L3-4: ??Disc degeneration. Disc bulge and facet arthropathy results in mild spinal canal narrowing. Mild neural foraminal narrowing. Moderate facet arthropathy. L4-5: Trace anterolisthesis. Uncovering the disc with ligamentum flavum thickening and facet arthropathy results in [id number] spinal canal narrowing. Mild neural foraminal narrowing. Severe facet arthropathy. L5-S1: ??Disc bulge, eccentric towards the left results in moderate left lateral recess stenosis. Encroachment upon the descending left S1 nerves. Mild to moderate left and mild right neural foraminal narrowing. Severe facet arthropathy. Mild sacroiliac joint osteoarthritis. Impression: Thoracic: 1. Acute fractures involving the T11-12 anterior endplate osteophyte and posterior T11 vertebral body. 2. Disruption of the anterior and posterior longitudinal ligaments at T11-12. Widening of the anterior disc space. 3. No spinal canal stenosis or intraspinal signal abnormality. 4. Healing subacute compression fracture at T7. Lumbar: 1. Acute right transverse process fractures at L1, L2 and L3. 2. At L4-5, trace anterolisthesis with mild to moderate spinal canal narrowing. 3. At L5-S1, moderate left lateral recess stenosis with encroachment upon the descending left S1 nerves. Dictated by Harjinder Peña MD @ 07/22/2024 11:27:42 AM (Electronically Signed) Procedure Note Harjinder Peña DO - 07/22/2024 For Patients: As a result of the Century Cures Act, medical imagingexams and procedure reports are released immediately into your electronicmedical record. You may view this report before your referring provider.If you have questions, please contact your health care provider. Indication: Fracture. Technique: Multiplanar, multisequence MRI of the thoracic and lumbar spine wasperformed without intravenous contrast. Comparison: CT thoracic and lumbar spine 07/21/2024. Findings: Thoracic: There is an acute fracture involving the anterior endplate osteophyte [id number] extension of fracture through the right posterolateral vertebralbody of T11 and extending to involve the T10-11 and T11-12 disc spaces.Additionally the fracture extends to involve the left posterosuperiorendplate. There is disruption of the anterior and posterior longitudinal ligaments.Widening of the anterior T11-12 disc space of approximately 8 mm. Theligamentum flavum appears intact. Trace anterolisthesis T11 on T12. No abnormal intraspinal signal or significant retropulsion of vertebralelements. Mild chronic superior endplate compression deformity of T6. Healingsubacute compression fracture at T7. Lumbar: There are 5 lumbar type vertebral segments identified. Acute fracturesinvolving the right L1, L2 and L3 transverse processes. The conus medullaris terminates at L1, normal. Cauda equina appearsunremarkable. T12-L1: No spinal canal or neural foraminal stenosis. L1-2: Small central annular fissure. No spinal canal or neural foraminalnarrowing. L2-3: Disc bulge results in minimal spinal canal narrowing. Mild neuralforaminal narrowing. Moderate facet arthropathy. L3-4: Disc degeneration. Disc bulge and facet arthropathy results in mildspinal canal narrowing. Mild neural foraminal narrowing. Moderate facetarthropathy. L4-5: Trace anterolisthesis. Uncovering the disc with ligamentum flavumthickening and facet arthropathy results in [id number] spinal canalnarrowing. Mild neural foraminal narrowing. Severe facet arthropathy. L5-S1: Disc bulge, eccentric towards the left results in moderate leftlateral recess stenosis. Encroachment upon the descending left S1 nerves.Mild to moderate left and mild right neural foraminal narrowing. Severefacet arthropathy. Mild sacroiliac joint osteoarthritis. Impression: Thoracic: 1. Acute fractures involving the T11-12 anterior endplate osteophyte andposterior T11 vertebral body. 2. Disruption of the anterior and posterior longitudinal ligaments [id number]. Widening of the anterior disc space. 3. No spinal canal stenosis or intraspinal signal abnormality. 4. Healing subacute compression fracture at T7. Lumbar: 1. Acute right transverse process fractures at L1, L2 and L3. 2. At L4-5, trace anterolisthesis with mild to moderate spinal canalnarrowing. 3. At L5-S1, moderate left lateral recess stenosis with encroachment uponthe descending left S1 nerves. Dictated by Harjnider Peña MD @ 07/22/2024 11:27:42 AM (Electronically Signed) Vitaly Huitron MD MR * MR SPINE THORACIC WO CONTRAST (07/22/2024 11:05 AM CDT) Anatomical Region Laterality Modality Spine, THORACIC SPINE Magnetic R esonance 07/22/2024 11:2 7 AM CDT Narrative 07/22/2024 11:27 AM CDT For Patients: ??As a result of the Cures Act, medical imaging exams and procedure reports are released immediately into your electronic medical record. ??You may view this report before your referring provider. ??If you have questions, please contact your health care provider. Indication: Fracture. Technique: Multiplanar, multisequence MRI of the thoracic and lumbar spine was performed without intravenous contrast. Comparison: CT thoracic and lumbar spine 07/21/2024. Findings: Thoracic: There is an acute fracture involving the anterior endplate osteophyte of T11-12 extension of fracture through the right posterolateral vertebral body of T11 and extending to involve the T10-11 and T11-12 disc spaces. Additionally the fracture extends to involve the left posterosuperior endplate. There is disruption of the anterior and posterior longitudinal ligaments. Widening of the anterior T11-12 disc space of approximately 8 mm. The ligamentum flavum appears intact. Trace anterolisthesis T11 on T12. No abnormal intraspinal signal or significant retropulsion of vertebral elements. Mild chronic superior endplate compression deformity of T6. Healing subacute compression fracture at T7. Lumbar: There are 5 lumbar type vertebral segments identified. Acute fractures involving the right L1, L2 and L3 transverse processes. The conus medullaris terminates at L1, normal. Cauda equina appears unremarkable. T12-L1: No spinal canal or neural foraminal stenosis. L1-2: Small central annular fissure. No spinal canal or neural foraminal narrowing. L2-3: Disc bulge results in minimal spinal canal narrowing. Mild neural foraminal narrowing. Moderate facet arthropathy. L3-4: ??Disc degeneration. Disc bulge and facet arthropathy results in mild spinal canal narrowing. Mild neural foraminal narrowing. Moderate facet arthropathy. L4-5: Trace anterolisthesis. Uncovering the disc with ligamentum flavum thickening and facet arthropathy results in [id number] spinal canal narrowing. Mild neural foraminal narrowing. Severe facet arthropathy. L5-S1: ??Disc bulge, eccentric towards the left results in moderate left lateral recess stenosis. Encroachment upon the descending left S1 nerves. Mild to moderate left and mild right neural foraminal narrowing. Severe facet arthropathy. Mild sacroiliac joint osteoarthritis. Impression: Thoracic: 1. Acute fractures involving the T11-12 anterior endplate osteophyte and posterior T11 vertebral body. 2. Disruption of the anterior and posterior longitudinal ligaments at T11-12. Widening of the anterior disc space. 3. No spinal canal stenosis or intraspinal signal abnormality. 4. Healing subacute compression fracture at T7. Lumbar: 1. Acute right transverse process fractures at L1, L2 and L3. 2. At L4-5, trace anterolisthesis with mild to moderate spinal canal narrowing. 3. At L5-S1, moderate left lateral recess stenosis with encroachment upon the descending left S1 nerves. Dictated by Harjinder Peña MD @ 07/22/2024 11:27:17 AM (Electronically Signed) Procedure Note Harjinder Peña DO - 07/22/2024 For Patients: As a result of the 21st Century Cures Act, medical imagingexams and procedure reports are released immediately into your electronicmedical record. You may view this report before your referring provider.If you have questions, please contact your health care provider. Indication: Fracture. Technique: Multiplanar, multisequence MRI of the thoracic and lumbar spine wasperformed without intravenous contrast. Comparison: CT thoracic and lumbar spine 07/21/2024. Findings: Thoracic: There is an acute fracture involving the anterior endplate osteophyte [id number] extension of fracture through the right posterolateral vertebralbody of T11 and extending to involve the T10-11 and T11-12 disc spaces.Additionally the fracture extends to involve the left posterosuperiorendplate. There is disruption of the anterior and posterior longitudinal ligaments.Widening of the anterior T11-12 disc space of approximately 8 mm. Theligamentum flavum appears intact. Trace anterolisthesis T11 on T12. No abnormal intraspinal signal or significant retropulsion of vertebralelements. Mild chronic superior endplate compression deformity of T6. Healingsubacute compression fracture at T7. Lumbar: There are 5 lumbar type vertebral segments identified. Acute fracturesinvolving the right L1, L2 and L3 transverse processes. The conus medullaris terminates at L1, normal. Cauda equina appearsunremarkable. T12-L1: No spinal canal or neural foraminal stenosis. L1-2: Small central annular fissure. No spinal canal or neural foraminalnarrowing. L2-3: Disc bulge results in minimal spinal canal narrowing. Mild neuralforaminal narrowing. Moderate facet arthropathy. L3-4: Disc degeneration. Disc bulge and facet arthropathy results in mildspinal canal narrowing. Mild neural foraminal narrowing. Moderate facetarthropathy. L4-5: Trace anterolisthesis. Uncovering the disc with ligamentum flavumthickening and facet arthropathy results in [id number]-[id number] spinal canalnarrowing. Mild neural foraminal narrowing. Severe facet arthropathy. L5-S1: Disc bulge, eccentric towards the left results in moderate leftlateral recess stenosis. Encroachment upon the descending left S1 nerves.Mild to moderate left and mild right neural foraminal narrowing. Severefacet arthropathy. Mild sacroiliac joint osteoarthritis. Impression: Thoracic: 1. Acute fractures involving the T11-12 anterior endplate osteophyte andposterior T11 vertebral body. 2. Disruption of the anterior and posterior longitudinal ligaments [id number]. Widening of the anterior disc space. 3. No spinal canal stenosis or intraspinal signal abnormality. 4. Healing subacute compression fracture at T7. Lumbar: 1. Acute right transverse process fractures at L1, L2 and L3. 2. At L4-5, trace anterolisthesis with mild to moderate spinal canalnarrowing. 3. At L5-S1, moderate left lateral recess stenosis with encroachment uponthe descending left S1 nerves. Dictated by Harjinder Peña MD @ 07/22/2024 11:27:17 AM (Electronically Signed) Vitaly Huitron MD MR * TYPE & SCREEN (07/22/2024 6:26 AM CDT) Pathologist [facility] ABORH O Rh Negative 07/22/2024 7:35 AM CDT [facility] BLOOD [facility] ANTIBODY SCREEN Negative Negative 07/22/2024 7:35 AM CDT [facility] B[facility]OD [facility] SPECIMEN EXPIRATION DATE/TIME 07/25/24 23:59 07/22/2024 7:35 AM CDT [facility]OD [facility] Blood BLOOD SPECIMEN / Unknown Venipuncture / Unknown 07/22/2024 6:26 AM CDT 07/22/2024 6:47 AM CDT Sriram Hwang MD BLOOD BANK [facility] BLOOD BANK [address] [place] [address], * (ABNORMAL) CBC W PLT NO DIFF (07/22/2024 6:26 AM CDT) Pathologist [facility] WHITE BLOOD COUNT 8.2 4.5 - 11.0 thou/cu mm 07/22/2024 7:03 AM CDT [facility] RED BLOOD COUNT 3.71(L) 4.30 - 5.90 mil/cu mm 07/22/2024 7:03 AM CDT [facility] HEMOGLOBIN 11.7(L) 13.5 - 17.5 g/dL 07/22/2024 7:03 AM CDT [facility] HEMATOCRIT 34.8(L) 37.0 - 53.0 % 07/22/2024 7:03 AM CDT [facility] MCV 94 80 - 100 fL 07/22/2024 7:03 AM CDT [facility] MCH 31.5 26.0 - 34.0 pg 07/22/2024 7:03 AM CDT [facility] MCHC 33.6 32.0 - 36.0 g/dL 07/22/2024 7:03 AM CDT [facility] RDW 13.0 11.5 - 15.5 % 07/22/2024 7:03 AM CDT [facility] PLATELET COUNT 196 140 - 440 thou/cu mm 07/22/2024 7:03 AM CDT [facility] MPV 8.9 6.5 - 11.0 fL 07/22/2024 7:03 AM CDT [facility] NRBC 0.0 % 07/22/2024 7:03 AM CDT [facility] ABS NRBC 0.0 thou /cu mm 07/22/2024 7:03 AM CDT [facility] Blood BLOOD SPECIMEN / Unknown Venipuncture / Unknown 07/22/2024 6:26 AM CDT 07/22/2024 6:47 AM CDT Sriram Hwang MD HEMATOLOGY [facility] [address] [place] [address], [place] * SODIUM (07/22/2024 6:26 AM CDT) SODIUM 141 136 - 145 mmol/L 07/22/2024 7:17 AM CDT [facility] Blood BLOOD SPECIMEN / Unknown Venipuncture / Unknown 07/22/2024 6:26 AM CDT 07/22/2024 6:47 AM CDT Sriram Hwang MD CHEMISTRY [facility] [address] [place] [id number], [place] * (ABNORMAL) POTASSIUM (07/22/2024 6:26 AM CDT) POTASSIUM 5.2(H) 3.5 - 5.1 mmol/L 07/22/2024 7:17 AM CDT [facility] Blood BLOOD SPECIMEN / Unknown Venipuncture / Unknown 07/22/2024 6:26 AM CDT 07/22/2024 6:47 AM CDT Sriram Hwang MD CHEMISTRY Performing Organization Address [facility] de Phone Number [facility] [address] [place] [address], [place] * (ABNORMAL) CREATININE (07/22/2024 6:26 AM CDT) eGFR 59(L) >90 mL/min/1.7 3m2 07/22/2024 7:17 AM CDT [facility] Comment:As of 2021, eG FR is calculated by the CKD-EPI creatinine equation without race adjustment. ??eGFR can be influenced by muscle mass, exercise, and diet. ??The reported eGFR is an estimation only and is only applicable if the renal function is stable. CREATININE 1.26(H) 0.70 - 1.20 mg/dL 07/22/2024 7:17 AM CDT [facility] Blood BLOOD SPECIMEN / Unknown Venipuncture / Unknown 07/22/2024 6:26 AM CDT 07/22/2024 6:47 AM CDT Sriram Hwang MD CHEMISTRY Performing Organization Address [facility] Co de Phone Number [facility] [address] [place] [address], [place] * (ABNORMAL) INR AM (07/22/2024 6:26 AM CDT) INR 1.1 <1.3 07/22/2024 7:03 AM CDT [facility] PROTIME 12.8(H) 10.3 - 12.3 sec 07/22/2024 7:03 AM CDT [facility] Blood BLOOD SPECIMEN / Unknown Venipuncture / Unknown 07/22/2024 6:26 AM CDT 07/22/2024 6:47 AM CDT Narrative [facility] - 07/22/2024 7:03 AM CDT ?Therapeutic Range 2.0-3.0 for most anticoagulated patients 2.5-3.5 or 4.0 for high risk patients The INR is only used for patients on stable oral anticoagulant therapy. It makes no significant contribution to the diagnosis or treatment of patients whose Protime is prolonged for other reasons. INR results are increased when heparin levels exceed 1.0 U/mL, which corresponds to an aPTT >125 seconds if the patient is on UFH. Sriram Hwang MD HEMATOLOGY Performing Organization Address City/[facility]/ZIP Co de Phone Number [facility] [address] [place] [address], [place] * SCAN-CT INTERPRETATION (07/21/2024 12:00 AM CDT) Anatomical Region Laterality Modality Other Scanner OTHER * OCCULT BLOOD IFOBT STOOL (02/09/2024 10:19 AM CDT) STOOL BLOOD ,IFOBT Negative Negative 02/22/2024 12:21 PM CDT [facility] Stool STOOL SPECIMEN / Unknown Non-Blood / Unknown 02/09/2024 10:19 AM CDT 02/22/2024 10:19 AM CDT Merrill Ewing MD LABORATORY Performing Organization Address City/[facility]/ZIP Co de Phone Number [facility] [address] [place] [address], * (ABNORMAL) LIPID PANEL W REFLEX MEASURED LDL (01/28/2024 8:22 AM CDT) CHOLESTEROL,TOTAL 150 100 - 199 mg/dL 01/28/2024 5:24 PM CDT [facility] Comment: Cholesterol, Total Reference Ranges Desirable <200 mg/dL Borderline 200-239 mg/dL High >=240 mg/dL TRIGLYCERIDES 242(H) <150 mg/dL 01/28/2024 5:24 PM CDT [facility] HDL CHOLESTEROL 60 >40 mg/dL 5:24 PM CDT [facility] NON-HDL CHOLESTEROL 90 <145 mg/dl 01/28/2024 5:24 PM CDT [facility] CHOL/HDL RATIO 2.50 <4.50 01/28/2024 5:24 PM CDT [facility] LDL CHOLESTEROL 42 <=130 mg/dL 01/28/2024 5:24 PM CDT [facility] VLDL CHOLESTEROL 48(H) <=30 mg/dL 01/28/2024 5:24 PM CDT [facility] PROVIDER ORDERED STATUS RANDOM 01/28/2024 5:24 PM T [facility] Blood BLOOD SPECIMEN / Unknown Venipuncture / Unknown 01/28/2024 8:22 AM CDT 01/28/2024 8:26 AM CDT Merrill Ewing MD CHEMISTRY [facility] [address] [place] [address], * ANTI HCV (12/10/2020 2:37 PM DIRECT CARE SPECIALIST) HEPATITIS C ANTIBODY Non-React alan Non-React alan 12/10/2020 9:48 PM DIRECT CARE SPECIALIST [facility] Comment:Antibodies to HCV no t detected; does not exclude the possibility of exposure to HCV. Blood BLOOD SPECIMEN / Unknown Venipuncture / Unknown 12/10/2020 2:37 PM DIRECT CARE SPECIALIST 12/10/2020 2:37 PM DIRECT CARE SPECIALIST Merrill Ewing MD SEND OUTS [facility] [address] [place] [address], [place] from Last 3 Months or Most Recently Relevant to Health Maintenance Advance Directives * Full Code (Latest Code Status on File) Date Activated Date Inactivated Comments 07/21/2024 10:40 PM 07/24/2024 4:57 PM Question Answer Comments Code Status Discussion: Reviewed Preferences * Full Code Date Activated Date Inactivated Comments 07/21/2024 9:55 PM 07/21/2024 10:40 PM Question Answer Comments Code Status Discussion: Other Care Teams Beach Expert Relationship Specialty Start Date End Date Merrill Ewing MD [address] [place] [address] PCP - General Family Practice [facility]04[facility]20 [facility] [address] [place] [address] 07/24/24
== END 2024-07-21 20:43 | disposition home or self-care (01) ==
LOC: AMB 07-25 21:46
PROVIDERS: PCP Family Medicine; Visit Provider Student in an Organized Health Care Education/Training Program
DX: S22.089A Unspecified fracture of T11-T12 vertebra, initial encounter for closed fracture (principal)
CPT/HCPCS: A0425; A0427